=== PATIENT | male | born 1985 | race Caucasian/White ===

== ENCOUNTER 2016-04-28 22:21 | Emergency (ER) | payer SELFPAY ==
--- NOTE | 2016-04-28 22:49 | ER Document Report ---
ED Medical Screen (RME) - General Chief Complaint: Dog Bite Stated Complaint: DOG BITE Mode of Arrival: Ambulatory Information source: Patient Notes: Patient presents to the ED dog bites to the face. Patient reports he was at a friend's house bent down to pet the dog and the dog jumped up and bit his face. Multiple lacerations noted around his lips. Patient is spitting blood. Reports tetanus is up-to-date. I have greeted and performed a rapid initial assessment of this patient. A comprehensive ED assessment and evaluation of the patient, analysis of test results and completion of the medical decision making process will be conducted by additional ED providers. TRAVEL OUTSIDE OF THE [place] IN LAST 30 DAYS: No - Related Data Allergies/Adverse Reactions: tramadol [Tramadol] Allergy (Severe, Verified 01/07/11 20:59) throat swells No Known Drug Allergies Allergy (Mild, Verified 04/28/16 22:27) Past Medical History - Social History Frequency of alcohol use: None Drug Abuse: None Renal/ Medical History: Denies: Hx Peritoneal Dialysis - Immunizations Hx Diphtheria, Pertussis, Tetanus Vaccination: Yes - 2010 Physical Exam - Vital signs Vitals: Pulse Resp BP Pulse Ox 82 20 152/92 H 98 04/28/16 22:32 04/28/16 22:32 04/28/16 22:32 04/28/16 22:32 Course - Vital Signs Vital signs: Temp Pulse Resp BP Pulse Ox 82 20 152/92 H 98 04/28/16 22:32 04/28/16 22:32 04/28/16 22:32 04/28/16 22:32
[2016-04-28] MEDS ORDERED: LIDOCAINE 1% INJ-PF (10 MG/ML) 30 ML SDV INJ ONE (23:12)
--- NOTE | 2016-04-28 23:12 | ER Document Report ---
ED Animal Bite - General Chief Complaint: Dog Bite Stated Complaint: DOG BITE Time seen by provider: 23:11 Mode of Arrival: Ambulatory Information source: Patient TRAVEL OUTSIDE OF THE [place] IN LAST 30 DAYS: No - HPI Patient complains to provider of: dog bite to face Location of injury: Face Severity of injury: Bitten Onset: Just prior to arrival Quality of pain: Achy Pain Level: 4 Severity: Severe Context of attack: Approached animal Type of animal: Dog Appearance of animal: Appeared well Animal's immunizations: UTD Animal captured or known: Yes Notes: Patient is a 30-year-old male presenting to the emergency room complaining of dog bite to his face that occurred just prior to arrival, states he was at his friend's house and approach the dog which he has known in the past to be friendly, today the dog bit him in the face causing severe lacerations to his upper and lower lips and right side of his face, he reports that the dog's vaccinations are up-to-date and his last tetanus shot was within the last year - Related Data Allergies/Adverse Reactions: tramadol [Tramadol] Allergy (Severe, Verified 01/07/11 20:59) throat swells No Known Drug Allergies Allergy (Mild, Verified 04/28/16 22:27) Past Medical History - General Information source: Patient - Social History Smoking Status: Current Every Day Smoker Frequency of alcohol use: None Drug Abuse: None Family History: Reviewed & Not Pertinent Patient has suicidal ideation: No Patient has homicidal ideation: No Renal/ Medical History: Denies: Hx Peritoneal Dialysis - Immunizations Hx Diphtheria, Pertussis, Tetanus Vaccination: Yes - 2010 Review of Systems - Review of Systems Constitutional: No symptoms reported EENT: No symptoms reported Cardiovascular: No symptoms reported Respiratory: No symptoms reported Gastrointestinal: No symptoms reported Genitourinary: No symptoms reported Male Genitourinary: No symptoms reported Musculoskeletal: No symptoms reported Skin: See HPI Hematologic/Lymphatic: No symptoms reported Neurological/Psychological: No symptoms reported -: Yes All other systems reviewed and negative Physical Exam - Vital signs Vitals: Pulse Resp BP Pulse Ox 82 20 152/92 H 98 04/28/16 22:32 04/28/16 22:32 04/28/16 22:32 04/28/16 22:32 - Notes Notes: - General General appearance: Appears well, Alert In distress: None - HEENT Head: Normocephalic Eyes: Normal Conjunctiva: Normal Extraocular movements intact: Yes Eyelashes: Normal Pupils: PERRL - Respiratory Respiratory status: No respiratory distress - Cardiovascular Rhythm: Regular - Abdominal Inspection: Normal - Back Back: Normal - Extremities General upper extremity: Normal inspection General lower extremity: Normal inspection - Neurological Neuro grossly intact: Yes Orientation: AAOx4 [place] Coma Scale Eye Opening: Spontaneous [place] Coma Scale Verbal: Oriented [place] Coma Scale Motor: Obeys Commands Ealr Coma Scale Total: 15 - Psychological Associated symptoms: Normal affect, Normal mood - Skin Skin Temperature: Warm Skin Moisture: Dry Skin Color: Normal - HEENT Head: Other - Facial lacerations including #12 cm laceration just lateral to lips on right, #2 is a 5 cm laceration in the inferior portion of the right lower lip, crossing the vermilion border, #3 is a 2 cm laceration in the left upper lip which crosses the vermilion border, #4 is an 8 cm irregular shaped flap laceration in the left to mid lower lip which crosses the vermilion border 2 Course - Re-evaluation Re-evalutation: 04/29/16 03:10 I explained to patient repeatedly that there 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 application 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 facility, his lacerations across the vermilion border in several areas, and that he would benefit from being treated by a plastic surgeon, however patient adamantly refused being transferred to another facility at this time, and repeatedly requested that I repair his lacerations at this facility, wounds were repaired using sutures, see procedure note, patient was started on antibiotics and provided with pain medication, as well as information for follow -up, advised to return if symptoms worsen, patient and spouse at bedside acknowledge understanding and agreement with this plan - Vital Signs Vital signs: Temp Pulse Resp BP Pulse Ox 97.6 F 90 16 131/81 H 98 04/29/16 02:48 04/29/16 02:48 04/29/16 02:48 04/29/16 02:48 04/29/16 02:48 Procedures - Laceration/Wound Repair Right Mid- Face Time completed: 02:46 Wound length (cm): 1.5 Wound's Depth, Shape: Irregular Laceration pre-procedure: Sterile PPE donned, Chloraprep applied, Sterile drapes applied Anesthetic type: 1% Lidocaine Volume Anesthetic (mLs): 2 Wound explored: Clean Irrigated w/ Saline (mLs): 300 Wound Repaired With: Sutures Suture Size/Type: 6:0, Nylon Number of Sutures: 2 Post-procedure wound care: Sterile dressing applied Post-procedure NV exam normal: Yes Complications: No Adult Head Front/Back picture: 1 - 1.5 cm laceration Right Lower Face Time completed: 02:47 Wound length (cm): 8 Wound's Depth, Shape: Linear Laceration pre-procedure: Sterile PPE donned, Chloraprep applied, Sterile drapes applied Anesthetic type: 1% Lidocaine Volume Anesthetic (mLs): 8 Wound explored: Clean Irrigated w/ Saline (mLs): 300 Wound Repaired With: Sutures Suture Size/Type: 6:0 Number of Sutures: 5 Layer Closure?: No Post-procedure wound care: Sterile dressing applied Post-procedure NV exam normal: Yes Complications: No Adult Head Front/Back picture: 1 - 6 cm laceration Left Upper Lip Time completed: 02:49 Wound length (cm): 2 Wound's Depth, Shape: Linear, Other Laceration pre-procedure: Sterile PPE donned, Chloraprep applied, Sterile drapes applied Anesthetic type: 1% Lidocaine Volume Anesthetic (mLs): 2 Wound explored: Clean Irrigated w/ Saline (mLs): 250 Wound Repaired With: Sutures Suture Size/Type: 6:0, Nylon Number of Sutures: 3 Layer Closure?: Yes Deep Layer Suture Size/Type: 5:0, Other - Vicryl Number Deep Layer Sutures: 2 Post-procedure wound care: Sterile dressing applied Post-procedure NV exam normal: Yes Complications: No Adult Head Front/Back picture: 1 - 2 cm laceration crossing vermilion border Left Lower lip Time completed: 02:50 Wound length (cm): 6 Wound's Depth, Shape: Irregular, Flap, Other Laceration pre-procedure: Sterile PPE donned, Chloraprep applied, Sterile drapes applied Anesthetic type: 1% Lidocaine Volume Anesthetic (mLs): 6 Wound explored: Clean Irrigated w/ Saline (mLs): 250 Wound Repaired With: Sutures Suture Size/Type: 6:0, Nylon Number of Sutures: 8 Layer Closure?: Yes Deep Layer Suture Size/Type: 5:0, Other - Vicryl Number Deep Layer Sutures: 4 Post-procedure wound care: Sterile dressing applied Post-procedure NV exam normal: Yes Complications: No Adult Head Front/Back picture: 1 - 6 cm laceration crossing vermilion border 2 Discharge - Discharge Clinical Impression: Dog bite of face Qualifiers: Encounter type: initial encounter Qualified Code(s): S01.85XA - Open bite of other part of head, initial encounter; W54.0XXA - Bitten by dog, initial encounter Facial laceration Qualifiers: Encounter type: initial encounter Qualified Code(s): S01.81XA - Laceration without foreign body of other part of head, initial encounter Lip laceration Qualifiers: Encounter type: initial encounter Qualified Code(s): S01.511A - Laceration without foreign body of lip, initial encounter Condition: Stable Disposition: HOME, SELF-CARE Instructions: Antibiotic Ointment Protection ([facility]), Laceration Care ([facility]), Oral Narcotic Medication ([facility]), Prophylactic Antibiotic ([facility]), Soap Cleansing ( [facility]) Additional Instructions: Follow up with your primary care provider for wound check in 2-3 days. Return to the emergency room immediately if symptoms worsen or any additional concerns. Gently cleanse wounds with warm water and soap twice daily and apply antibiotic ointment and a clean dressing. Sutures to be removed in 7-10 days. Prescriptions: Amox Tr/Potassium Clavulanate [Augmentin 875-125 Tablet] 1 tab PO BID #20 tablet Oxycodone HCl/Acetaminophen [Percocet 10-325 Mg Tablet] 1 each PO Q6 #30 tablet
[2016-04-29] MEDS ORDERED: MORPHINE SULFATE 10 MG/ML INJ IV ONE (00:13)
[2016-04-29] MEDS ORDERED: LIDOCAINE 2%/EPINEPHRINE INJ 20 ML VIAL INJ ONE (01:12)
[2016-04-29] MEDS ORDERED: HYDROCODONE/ACETAMINOPHEN 5-325 MG 6 TAB/DSPK PO PRN (02:35)
[2016-04-29] MEDS ORDERED: AMOXICILLIN TR/POT CLAVULANATE 500-125 MG TAB PO ONE (02:35)
[2016-04-29 02:49] VITALS: BP 131/81
== END 2016-04-29 02:55 | disposition home or self-care (01) ==
LOC: ER 22:21
PROC: 0HQ1XZZ Repair Face Skin, External Approach (ICD-10-PCS; principal; 2016-04-28)
PROC: 0CQ1XZZ Repair Lower Lip, External Approach (ICD-10-PCS; 2016-04-28)
PROC: 0CQ0XZZ Repair Upper Lip, External Approach (ICD-10-PCS; 2016-04-28)
DX: S01.85XA Open bite of other part of head, initial encounter (principal); S01.81XA Laceration without foreign body of other part of head, initial encounter; S01.511A Laceration without foreign body of lip, initial encounter; F17.200 Nicotine dependence, unspecified, uncomplicated; W54.0XXA Bitten by dog, initial encounter; Y92.009 Unspecified place in unspecified non-institutional (private) residence as the place of occurrence of the external cause
CPT/HCPCS: 99283; 96374; 12015; 12054; J3490; J2270